=== PATIENT | female | born 1945 | race Two or more races ===

== ENCOUNTER → 2021-02-08 | Outpatient (CLI) | payer OTHER ==
[~2021-02-08] MED LIST: ARICEPT10 MG; COZAAR50 MG; DICLOFENAC SODI50 MG; ECOTRIN81 MG; GLIMEPIRIDE2 MG PO; ZOLOFT50 MG
== END | disposition home or self-care (01) ==
LOC: PPH VACUNA 08-15 08:00
PROVIDERS: ATTEND Emergency Medicine Pediatric Emergency Medicine
DX: Z23 Encounter for immunization (principal)

== ENCOUNTER → 2021-07-27 | Outpatient (CLI) | payer OTHER | END | disposition home or self-care (01) | LOC: MAMO-SONO 13:50 | PROVIDERS: ATTEND Internal Medicine | DX: N60.11 Diffuse cystic mastopathy of right breast (principal); N60.12 Diffuse cystic mastopathy of left breast ==

== ENCOUNTER 2022-02-26 14:06 | Emergency (ER) | payer OTHER ==
[~2022-02-26] VITALS: Ht 165.1 cm; Wt 52.2 kg
== END 2022-02-26 18:57 | disposition home or self-care (01) ==
LOC: ER 14:06
DX: S00.93XA Contusion of unspecified part of head, initial encounter (principal); S70.02XA Contusion of left hip, initial encounter; W18.30XA Fall on same level, unspecified, initial encounter; Y93.9 Activity, unspecified; Y92.018 Other place in single-family (private) house as the place of occurrence of the external cause; Y99.9 Unspecified external cause status; I10 Essential (primary) hypertension; G30.9 Alzheimer's disease, unspecified; F02.80 Dementia in other diseases classified elsewhere, unspecified severity, without behavioral disturbance, psychotic disturbance, mood disturbance, and anxiety

== ENCOUNTER 2022-07-25 15:48 | Emergency (ER) | payer OTHER ==
[~2022-07-25] VITALS: Ht 157.5 cm; Wt 59.0 kg
[2022-07-25] MEDS ORDERED: CLONAZEPAM0.5 MG PO (15:57)
== END 2022-07-25 18:19 | disposition home or self-care (01) ==
LOC: ER 15:48
DX: S09.8XXA Other specified injuries of head, initial encounter (principal); W18.39XA Other fall on same level, initial encounter; Y93.89 Activity, other specified; Y92.018 Other place in single-family (private) house as the place of occurrence of the external cause; I10 Essential (primary) hypertension; G30.8 Other Alzheimer's disease; F02.80 Dementia in other diseases classified elsewhere, unspecified severity, without behavioral disturbance, psychotic disturbance, mood disturbance, and anxiety; E11.9 Type 2 diabetes mellitus without complications; Z79.84 Long term (current) use of oral hypoglycemic drugs; S89.81XA Other specified injuries of right lower leg, initial encounter

== ENCOUNTER 2024-11-13 11:29 | Inpatient (IN) | payer OTHER ==
[~2024-11-13] VITALS: Ht 152.4 cm; Wt 45.4 kg
[~2024-11-13 11:29] MED LIST changes: +CLONAZEPAM0.5 MG PO
[2024-11-13] MEDS ORDERED: FAMOTIDINE/PF 20 MG in 0.9 % SODIUM CHLORIDE 8 ML IV PUSH STA (11:49)
[2024-11-13] MEDS ORDERED: ARICEPT5 MG (11:58)
[2024-11-13] MEDS ORDERED: SERTRALINE20 MG/1 ML (11:58)
[2024-11-13] MEDS ORDERED: COZAAR25 MG (11:59)
[2024-11-13] MEDS ORDERED: GLIMEPIRIDE2 M1 (11:59)
[2024-11-13] MEDS ORDERED: 0.9 % SODIUM CHLORIDE 1,000 ML IV SCH ×2 (12:00→19:45)
[2024-11-13 12:13] LABS: BASO % 0.2 % (0.1-1.2); EOS # 0.08 (0.04-0.54); EOS % 1.6 % (0.7-7.0); LYMPH # 0.85 (1.18-3.74); LYMPH % 16.9 % (19.3-53.1); MEAN PLATELET VOLUME 9.60 fl (9.4-12.4); MONO # 0.51 (0.24-0.82); MONO % 10.2 % (4.7-12.5); NEUT # 3.56 (1.56-6.13); NEUT % 70.9 % (34.0-71.1); RED CELL DISTRIBUTION WIDTH 15.7 % (11.6-14.4)
[2024-11-13 12:35] LABS: ALT/SGPT 27.0 U/L (12-78); AST/SGOT 15.0 U/L (15-37); BILIRUBIN TOTAL 0.39 mg/dL (0.3-1.2); BUN CREA RATIO 41.0 (7.0-25.0); CREATININE SERUM 1.09 mg/dL (0.55-1.02); GFR 48.67; GLOBULINA 2.9 G/DL (2.4-3.5); GLUCOSE FASTING 206.0 mg/dL (65-100); OSMOLALITY SERUM 312.0 MOSM/KG (275-295)
[2024-11-13 12:58] LABS: URINE APPEARANCE Cloudy; URINE BILIRRUBIN Small (NEGATIVE); URINE BLOOD Negative; URINE COLOR Dark Yellow; URINE GLUCOSE Negative (NEGATIVE); URINE KETONE Trace (NEGATIVE); URINE LEUKOCYTE Moderate; URINE NITRATE Negative; URINE PROTEIN Trace (NEGATIVE); URINE UROBILINOGEN 1.0 E.U./dl
[2024-11-13 13:02] LABS: URINE BACTERIA 3476.2 uL (0.0-1933); URINE EPITHELIAL CELLS 40.1 uL (0.0-38.8); URINE RBC 4.3 uL (0.0-20.8); URINE WBC 444.6 uL (0.0-23.2)
[2024-11-13 13:12] LABS: URINE CAST > 21.83 uL (0.0-1.40)
[2024-11-13 13:13] LABS: URINE CRYSTALS FEW /HPF
[2024-11-13] MEDS ORDERED: CEFTRIAXONE SODIUM 1,000 MG VIAL IV ONE (14:30)
[2024-11-13 17:00] VITALS: BP 109/59; O2SAT 100
[2024-11-13 19:00] VITALS: BP 115/58; O2SAT 100
[2024-11-13] MEDS ORDERED: DEXTROSE 50 % IN WATER 0.5 G/ML DISP.SYRIN IV PRN (19:45)
[2024-11-13] MEDS ORDERED: ONDANSETRON HCL 4 MG in 0.9 % SODIUM CHLORIDE 50 ML IV PRN (19:45)
[2024-11-13] MEDS ORDERED: ACETAMINOPHEN 500 MG GEL..CAP PO PRN (19:45)
[2024-11-13] MEDS ORDERED: INSULIN LISPRO 1,000 UNIT/10 ML UNITS SUBCUTANEO PRN (19:45)
[2024-11-13] MEDS ORDERED: PANTOPRAZOLE SODIUM 40 MG/VIAL VIAL IV SCH (19:45)
[2024-11-13] MEDS ORDERED: CEFTRIAXONE SODIUM 2,000 MG in 0.9 % SODIUM CHLORIDE 100 ML IV SCH (19:48)
[2024-11-13 20:00] VITALS: BP 112/61; O2SAT 100
[2024-11-13 21:00] VITALS: BP 112/58; O2SAT 100
[2024-11-13 21:11] LABS: INR 1.15
[2024-11-13 22:00] VITALS: BP 102/62; O2SAT 100
[2024-11-13 23:09] VITALS: BP 106/57; O2SAT 100
[2024-11-14 03:10] VITALS: BP 112/59; O2SAT 100
[2024-11-14 07:08] VITALS: BP 127/70; O2SAT 100
[2024-11-14 12:00] VITALS: BP 119/49; O2SAT 100
[2024-11-14 15:41] VITALS: BP 115/54; O2SAT 100
[2024-11-14 20:00] VITALS: BP 109/56; O2SAT 100
[2024-11-14 21:52] VITALS: BP 110/51; O2SAT 92
[2024-11-15 02:16] VITALS: BP 118/65; O2SAT 98
[2024-11-15 06:41] LABS: BASO % 0.2 % (0.1-1.2); EOS # 0.13 (0.04-0.54); EOS % 2.4 % (0.7-7.0); LYMPH # 0.85 (1.18-3.74); LYMPH % 15.9 % (19.3-53.1); MEAN PLATELET VOLUME 9.80 fl (9.4-12.4); MONO # 0.42 (0.24-0.82); MONO % 7.9 % (4.7-12.5); NEUT # 3.90 (1.56-6.13); NEUT % 73.2 % (34.0-71.1); RED CELL DISTRIBUTION WIDTH 15.4 % (11.6-14.4)
[2024-11-15 07:05] LABS: URINE APPEARANCE Clear; URINE BILIRRUBIN Negative (NEGATIVE); URINE BLOOD Moderate; URINE COLOR Yellow; URINE GLUCOSE Negative (NEGATIVE); URINE KETONE Negative (NEGATIVE); URINE LEUKOCYTE Trace; URINE NITRATE Negative; URINE PROTEIN 30 (NEGATIVE); URINE UROBILINOGEN 0.2 E.U./dl
[2024-11-15 07:10] LABS: URINE BACTERIA 77.9 uL (0.0-1933); URINE CAST 2.78 uL (0.0-1.40); URINE EPITHELIAL CELLS 6.3 uL (0.0-38.8); URINE RBC 435.1 uL (0.0-20.8); URINE WBC 33.8 uL (0.0-23.2)
[2024-11-15 07:17] LABS: ALT/SGPT 23.0 U/L (12-78); AST/SGOT 13.0 U/L (15-37); BILIRUBIN TOTAL 0.27 mg/dL (0.3-1.2); BUN CREA RATIO 40.0 (7.0-25.0); CREATININE SERUM 0.63 mg/dL (0.55-1.02); GFR 91.63; GLOBULINA 2.5 G/DL (2.4-3.5); GLUCOSE FASTING 53.0 mg/dL (65-100)
[2024-11-15 08:05] LABS: OSMOLALITY SERUM 305.0 MOSM/KG (275-295)
[2024-11-15 09:19] VITALS: BP 129/83; O2SAT 98
[2024-11-15 09:55] LABS: CORTISOL 19.84 ug/dl
[2024-11-15] MEDS ORDERED: MAGNESIUM SULFATE IN WATER 50 ML IV STA (09:58)
[2024-11-15] MEDS ORDERED: SODIUM CHLORIDE 0.45 % 1,000 ML IV SCH (10:00)
[2024-11-15] MEDS ORDERED: POTASSIUM CHLORIDE 20MEQ/100ML H2O PB IV NR (10:05)
[2024-11-15 17:48] VITALS: BP 133/72; O2SAT 99
[2024-11-15] MEDS ORDERED: MAGNESIUM SULFATE 50% 1,000 MG/2 ML VIAL IV ONE (20:30)
[2024-11-16 02:47] VITALS: BP 118/71; O2SAT 94
[2024-11-16 09:28] VITALS: BP 137/80
[2024-11-16 09:38] LABS: ALT/SGPT 20.0 U/L (12-78); AST/SGOT 11.0 U/L (15-37); BILIRUBIN TOTAL 0.3 mg/dL (0.3-1.2); BUN CREA RATIO 27.0 (7.0-25.0); CREATININE SERUM 0.55 mg/dL (0.55-1.02); GFR 107.18; GLOBULINA 2.5 G/DL (2.4-3.5); GLUCOSE FASTING 69.0 mg/dL (65-100); OSMOLALITY SERUM 293.0 MOSM/KG (275-295)
[2024-11-16] MEDS ORDERED: SENNOSIDES 1 TAB TABLET PO SCH (17:45)
[2024-11-16 18:05] VITALS: BP 158/78
[2024-11-17 00:33] VITALS: BP 137/86
[2024-11-17 09:21] VITALS: BP 137/87; O2SAT 98
[2024-11-17 18:26] VITALS: BP 138/94
[2024-11-18 00:39] VITALS: BP 128/78
[2024-11-18 10:17] LABS: BASO % 0.1 % (0.1-1.2); EOS # 0.17 (0.04-0.54); EOS % 2.1 % (0.7-7.0); LYMPH # 1.24 (1.18-3.74); LYMPH % 15.6 % (19.3-53.1); MEAN PLATELET VOLUME 10.00 fl (9.4-12.4); MONO # 0.65 (0.24-0.82); MONO % 8.2 % (4.7-12.5); NEUT # 5.82 (1.56-6.13); NEUT % 73.2 % (34.0-71.1); RED CELL DISTRIBUTION WIDTH 15.5 % (11.6-14.4)
[2024-11-18 10:20] VITALS: BP 103/55; O2SAT 98
[2024-11-18 10:26] VITALS: BP 125/74; O2SAT 99
[2024-11-18 11:16] LABS: ALT/SGPT 20.0 U/L (12-78); AST/SGOT 18.0 U/L (15-37); BILIRUBIN TOTAL 0.23 mg/dL (0.3-1.2); BUN CREA RATIO 11.0 (7.0-25.0); CREATININE SERUM 0.62 mg/dL (0.55-1.02); GFR 93.34; GLOBULINA 2.4 G/DL (2.4-3.5); GLUCOSE FASTING 212.0 mg/dL (65-100); OSMOLALITY SERUM 297.0 MOSM/KG (275-295)
[2024-11-18] MEDS ORDERED: LACTULOSE 20 G/30 ML BLIST.PACK PO SCH (13:00)
[2024-11-18] MEDS ORDERED: DOCUSATE SODIUM 100MG CAP PO SCH (17:00)
[2024-11-18 19:18] VITALS: BP 133/89
[2024-11-18 21:28] LABS: FECAL LEUKOCYTES NEGATIVE (NEGATIVE); ob NEGATIVE (NEGATIVE)
[2024-11-19 02:38] VITALS: BP 132/83; O2SAT 93
[2024-11-19 08:43] VITALS: BP 180/90; O2SAT 97
[2024-11-19] MEDS ORDERED: DIATRIZOATE MEGLUMINE, SODIUM 30 ML BOTTLE PO STA (13:50)
[2024-11-19 19:49] VITALS: BP 131/84
[2024-11-20 02:31] VITALS: BP 134/83; O2SAT 93
[2024-11-20 08:36] VITALS: BP 113/83
[2024-11-20] MEDS ORDERED: PEG3350/SOD SULF,BICARB,CL/KCL 4,000 ML GALLON PO NR (11:00)
[2024-11-20 18:03] VITALS: BP 110/74; O2SAT 96
[2024-11-21 03:04] VITALS: BP 141/84; O2SAT 92
[2024-11-21 08:53] VITALS: BP 124/70
[2024-11-21 12:21] LABS: BASO % 0.3 % (0.1-1.2); EOS # 0.15 (0.04-0.54); EOS % 1.6 % (0.7-7.0); LYMPH # 1.42 (1.18-3.74); LYMPH % 15.3 % (19.3-53.1); MEAN PLATELET VOLUME 9.90 fl (9.4-12.4); MONO # 0.83 (0.24-0.82); MONO % 8.9 % (4.7-12.5); NEUT # 6.76 (1.56-6.13); NEUT % 72.9 % (34.0-71.1); RED CELL DISTRIBUTION WIDTH 16.0 % (11.6-14.4)
[2024-11-21 13:15] LABS: ALT/SGPT 14.0 U/L (12-78); AST/SGOT 9.0 U/L (15-37); BILIRUBIN TOTAL 0.29 mg/dL (0.3-1.2); BUN CREA RATIO 16.0 (7.0-25.0); CREATININE SERUM 0.5 mg/dL (0.55-1.02); GFR 119.64; GLOBULINA 2.2 G/DL (2.4-3.5); GLUCOSE FASTING 134.0 mg/dL (65-100); OSMOLALITY SERUM 285.0 MOSM/KG (275-295)
[2024-11-21 16:54] VITALS: BP 118/78; O2SAT 94
[2024-11-22 01:48] VITALS: BP 116/75; O2SAT 95
[2024-11-22 09:25] VITALS: BP 112/72
[2024-11-22] MEDS ORDERED: NA PHOS,M-B/NA PHOS,DI-BA 1 BOTTLE ENEMA RECTAL STA (12:18)
[2024-11-22 16:00] VITALS: BP 127/97
[2024-11-23 01:16] VITALS: BP 130/80; O2SAT 98
[2024-11-23] MEDS ORDERED: NA PHOS,M-B/NA PHOS,DI-BA 1 BOTTLE ENEMA RECTAL NR (09:15)
[2024-11-23 10:12] VITALS: BP 126/79; O2SAT 97
[2024-11-23] MEDS ORDERED: DONEPEZIL HCL 10 MG TABLET PO SCH (17:00)
[2024-11-23 18:44] VITALS: BP 120/75; O2SAT 96
[2024-11-23] MEDS ORDERED: CLONAZEPAM 0.5 MG TABLET PO SCH (21:00)
[2024-11-24 02:06] VITALS: BP 100/70; O2SAT 98
[2024-11-24] MEDS ORDERED: SERTRALINE HCL 100 MG TABLET PO SCH (09:00)
[2024-11-24 10:37] VITALS: BP 109/75; O2SAT 99
[2024-11-24 13:28] LABS: BASO % 0.2 % (0.1-1.2); EOS # 0.03 (0.04-0.54); EOS % 0.2 % (0.7-7.0); LYMPH # 1.16 (1.18-3.74); LYMPH % 9.1 % (19.3-53.1); MEAN PLATELET VOLUME 9.70 fl (9.4-12.4); MONO # 0.61 (0.24-0.82); MONO % 4.8 % (4.7-12.5); NEUT # 10.90 (1.56-6.13); NEUT % 85.2 % (34.0-71.1); RED CELL DISTRIBUTION WIDTH 17.0 % (11.6-14.4)
[2024-11-24 13:50] LABS: BUN CREA RATIO 11.0 (7.0-25.0); CREATININE SERUM 0.53 mg/dL (0.55-1.02); GFR 111.86; GLUCOSE FASTING 177.0 mg/dL (65-100); OSMOLALITY SERUM 296.0 MOSM/KG (275-295)
[2024-11-24] MEDS ORDERED: POTASSIUM CHLORIDE IN WATER 100 ML IV NR (17:00)
[2024-11-24 18:08] VITALS: BP 120/72; O2SAT 96
[2024-11-25 01:52] VITALS: BP 127/72; O2SAT 94
[2024-11-25 10:30] VITALS: BP 120/84; O2SAT 96
[2024-11-25] MEDS ORDERED: POTASSIUM CHLORIDE IN WATER 100 ML IV NR (12:00)
[2024-11-25 19:13] VITALS: BP 129/99
[2024-11-25 19:22] VITALS: BP 129/79
[2024-11-26 03:30] VITALS: BP 110/68; O2SAT 95
[2024-11-26 07:06] LABS: BUN CREA RATIO 13.0 (7.0-25.0); CREATININE SERUM 0.48 mg/dL (0.55-1.02); GFR 125.41; GLUCOSE FASTING 121.0 mg/dL (65-100); OSMOLALITY SERUM 293.0 MOSM/KG (275-295)
[2024-11-26] MEDS ORDERED: POTASSIUM CHLORIDE IN WATER 40 MEQ/100 ML PIGGYBAG IV ONE (08:00)
[2024-11-26] MEDS ORDERED: CEFTRIAXONE SODIUM 2,000 MG VIAL ONE (08:02)
[2024-11-26] MEDS ORDERED: POTASSIUM CHLORIDE 10 MEQ CAPSULE PO NR (09:00)
[2024-11-26 09:17] VITALS: BP 123/72; O2SAT 96
[2024-11-26 17:52] VITALS: BP 123/80
[2024-11-26] MEDS ORDERED: LACTOBACILLUS ACIDOPHILUS 1 CAP CAP PO SCH (20:16)
[2024-11-26] MEDS ORDERED: MAGNESIUM SULFATE IN WATER 4 GM/100 ML PIGGYBACK IV ONE (20:30)
[2024-11-26] MEDS ORDERED: POTASSIUM CHLORIDE/D5-0.45NACL 40 MEQ/1,000 ML PIGGYBAG IV SCH (20:30)
[2024-11-27 03:46] VITALS: BP 121/68; O2SAT 95
[2024-11-27 05:40] LABS: BUN CREA RATIO 16.0 (7.0-25.0); CREATININE SERUM 0.44 mg/dL (0.55-1.02); GFR 138.65; GLUCOSE FASTING 166.0 mg/dL (65-100); OSMOLALITY SERUM 294.0 MOSM/KG (275-295)
[2024-11-27] MEDS ORDERED: CEFTRIAXONE SODIUM 2,000 MG VIAL ONE (08:55)
[2024-11-27] MEDS ORDERED: POTASSIUM BICARBONATE/CIT AC 25 MEQ TABLET.EFF PO NR (09:00)
[2024-11-27] MEDS ORDERED: POTASSIUM CHLORIDE IN WATER 40 MEQ/100 ML PIGGYBAG IV NR (09:00)
[2024-11-27 10:25] VITALS: BP 142/88; O2SAT 94
[2024-11-27] MEDS ORDERED: DIATRIZOATE MEGLUMINE, SODIUM 30 ML BOTTLE PO NR (16:00)
[2024-11-27 16:25] VITALS: BP 157/85; O2SAT 100
[2024-11-27] MEDS ORDERED: SPIRONOLACTONE 25 MG TABLET PO SCH (17:30)
[2024-11-27] MEDS ORDERED: POTASSIUM CHLORIDE/D5-0.45NACL 40 MEQ/1,000 ML PIGGYBAG IV SCH (17:45)
[2024-11-28 03:43] VITALS: BP 118/81
[2024-11-28 06:32] LABS: BASO % 0.5 % (0.1-1.2); EOS # 0.04 (0.04-0.54); EOS % 0.5 % (0.7-7.0); LYMPH # 1.03 (1.18-3.74); LYMPH % 13.2 % (19.3-53.1); MEAN PLATELET VOLUME 10.20 fl (9.4-12.4); MONO # 0.58 (0.24-0.82); MONO % 7.4 % (4.7-12.5); NEUT # 6.07 (1.56-6.13); NEUT % 78.0 % (34.0-71.1); RED CELL DISTRIBUTION WIDTH 17.2 % (11.6-14.4)
[2024-11-28 07:14] LABS: BUN CREA RATIO 12.0 (7.0-25.0); CREATININE SERUM 0.42 mg/dL (0.55-1.02); GFR 146.3; GLUCOSE FASTING 178.0 mg/dL (65-100); OSMOLALITY SERUM 296.0 MOSM/KG (275-295)
[2024-11-28 09:48] VITALS: BP 124/85; O2SAT 94
[2024-11-28 17:38] VITALS: BP 140/80; O2SAT 96
[2024-11-28] MEDS ORDERED: SPIRONOLACTONE 25 MG TABLET PO SCH (19:11)
[2024-11-28] MEDS ORDERED: POTASSIUM CHLORIDE IN WATER 40 MEQ/100 ML PIGGYBAG IV SCH (21:00)
[2024-11-29 00:52] VITALS: BP 122/83; O2SAT 98
[2024-11-29 08:31] VITALS: BP 126/82
[2024-11-29 16:06] LABS: BUN CREA RATIO 21.0 (7.0-25.0); CREATININE SERUM 0.39 mg/dL (0.55-1.02); GFR 159.36; GLUCOSE FASTING 98.0 mg/dL (65-100); OSMOLALITY SERUM 289.0 MOSM/KG (275-295)
[2024-11-29] MEDS ORDERED: POTASSIUM CHLORIDE IN WATER 40 MEQ/100 ML PIGGYBAG IV ONE (22:45)
[2024-11-29] MEDS ORDERED: NOREPINEPHRINE BITARTRATE 1 MG/ML AMPUL IV SCH (23:45)
[2024-11-30] VITALS: BP 85/50; O2SAT 95
[2024-11-30 01:30] VITALS: BP 108/74
[2024-11-30 05:00] VITALS: BP 109/80
[2024-11-30 07:29] LABS: BASO % 0.3 % (0.1-1.2); EOS # 0.09 (0.04-0.54); EOS % 0.9 % (0.7-7.0); LYMPH # 1.34 (1.18-3.74); LYMPH % 12.7 % (19.3-53.1); MEAN PLATELET VOLUME 11.10 fl (9.4-12.4); MONO # 0.61 (0.24-0.82); MONO % 5.8 % (4.7-12.5); NEUT # 8.40 (1.56-6.13); NEUT % 79.7 % (34.0-71.1); RED CELL DISTRIBUTION WIDTH 17.8 % (11.6-14.4)
[2024-11-30 07:59] LABS: ALT/SGPT 10.0 U/L (12-78); AST/SGOT 13.0 U/L (15-37); BILIRUBIN TOTAL 0.43 mg/dL (0.3-1.2); BUN CREA RATIO 18.0 (7.0-25.0); CREATININE SERUM 0.49 mg/dL (0.55-1.02); GFR 122.46; GLOBULINA 2.3 G/DL (2.4-3.5)
[2024-11-30 08:04] LABS: OSMOLALITY SERUM 287.0 MOSM/KG (275-295)
[2024-11-30 08:05] LABS: GLUCOSE FASTING 326.0 mg/dL (65-100)
[2024-11-30 08:11] VITALS: BP 124/83
[2024-11-30 16:35] VITALS: BP 100/77; O2SAT 92
[2024-12-01 02:00] VITALS: BP 92/72; O2SAT 94
[2024-12-01 09:12] VITALS: BP 113/71
[2024-12-01] MEDS ORDERED: LACTULOSE 20 G/30 ML BLIST.PACK PO NR (11:15)
[2024-12-01 16:25] VITALS: BP 101/71; O2SAT 92
[2024-12-02 03:01] VITALS: BP 126/85; O2SAT 93
[2024-12-02 06:07] LABS: BASO % 0.5 % (0.1-1.2); EOS # 0.12 (0.04-0.54); EOS % 1.4 % (0.7-7.0); LYMPH # 1.02 (1.18-3.74); LYMPH % 12.1 % (19.3-53.1); MEAN PLATELET VOLUME 10.90 fl (9.4-12.4); MONO # 0.67 (0.24-0.82); MONO % 8.0 % (4.7-12.5); NEUT # 6.55 (1.56-6.13); NEUT % 77.8 % (34.0-71.1); RED CELL DISTRIBUTION WIDTH 17.4 % (11.6-14.4)
[2024-12-02 07:08] LABS: ALT/SGPT 10.0 U/L (12-78); AST/SGOT 14.0 U/L (15-37); BILIRUBIN TOTAL 0.32 mg/dL (0.3-1.2); BUN CREA RATIO 23.0 (7.0-25.0); CREATININE SERUM 0.44 mg/dL (0.55-1.02); GFR 138.65; GLOBULINA 2.2 G/DL (2.4-3.5); GLUCOSE FASTING 133.0 mg/dL (65-100); OSMOLALITY SERUM 293.0 MOSM/KG (275-295)
[2024-12-02 08:55] VITALS: BP 95/66
[2024-12-02] MEDS ORDERED: POTASSIUM CHLORIDE IN WATER 40 MEQ/100 ML PIGGYBAG IV NR (10:00)
[2024-12-02 16:25] VITALS: BP 124/82
[2024-12-03 02:23] VITALS: BP 111/75; O2SAT 97
[2024-12-03] MEDS ORDERED: NA PHOS,M-B/NA PHOS,DI-BA 1 BOTTLE ENEMA RECTAL STA ×2 (06:57→07:12)
[2024-12-03] MEDS ORDERED: fentaNYL CITRATE 50 MCG/ML AMPUL IV PUSH ONE (09:00)
[2024-12-03] MEDS ORDERED: MIDAZOLAM HCL 2 MG/2 ML VIAL IV ONE (09:00)
[2024-12-03 18:27] VITALS: BP 115/74
[2024-12-04 01:56] VITALS: BP 106/60; O2SAT 96
[2024-12-04 09:06] VITALS: BP 114/74; O2SAT 99
[2024-12-04 17:57] VITALS: BP 127/79
[2024-12-05 01:37] VITALS: BP 133/82; O2SAT 96
[2024-12-05 09:04] VITALS: BP 138/80; O2SAT 98
[2024-12-05 09:59] LABS: BUN CREA RATIO 26.0 (7.0-25.0); CREATININE SERUM 0.39 mg/dL (0.55-1.02); GFR 159.36; GLUCOSE FASTING 119.0 mg/dL (65-100); OSMOLALITY SERUM 296.0 MOSM/KG (275-295)
[2024-12-05] MEDS ORDERED: POTASSIUM CHLORIDE IN WATER 40 MEQ/100 ML PIGGYBAG IV SCH (13:00)
[2024-12-05 18:00] VITALS: BP 124/81; O2SAT 95
[2024-12-06 01:51] VITALS: BP 133/86; O2SAT 97
[2024-12-06 10:43] VITALS: BP 123/86; O2SAT 97
[2024-12-06] MEDS ORDERED: MAGNESIUM SULFATE IN WATER 4 GM/100 ML PIGGYBACK IV NR (11:00)
[2024-12-06] MEDS ORDERED: SPIRONOLACTONE 50 MG TABLET PO NR (12:00)
[2024-12-06] MEDS ORDERED: POTASSIUM CHLORIDE 10 MEQ CAPSULE PO SCH (13:00)
[2024-12-06] MEDS ORDERED: POTASSIUM CHLORIDE IN WATER 40 MEQ/100 ML PIGGYBAG IV SCH (14:00)
[2024-12-06 17:14] VITALS: BP 142/85; O2SAT 97
[2024-12-07 01:28] VITALS: BP 130/80
[2024-12-07 07:43] LABS: BUN CREA RATIO 24.0 (7.0-25.0); CREATININE SERUM 0.42 mg/dL (0.55-1.02); GFR 146.3; GLUCOSE FASTING 139.0 mg/dL (65-100); OSMOLALITY SERUM 290.0 MOSM/KG (275-295)
[2024-12-07] MEDS ORDERED: SPIRONOLACTONE 50 MG TABLET PO SCH (09:00)
[2024-12-07 09:51] VITALS: BP 128/83; O2SAT 94
== END 2024-12-07 16:26 | disposition home or self-care (01) | DRG 872 ==
LOC: ER → SEC-K 19:58 → ICU 19:58 → MEDJ 19:58 → ICU-2 23:52 → ICU 11-14 03:49 → MEDJ 11-14 20:09
PROVIDERS: General Practice; Internal Medicine; Internal Medicine Infectious Disease; Internal Medicine Nephrology; Student in an Organized Health Care Education/Training Program; ADMIT Internal Medicine; ATTEND Internal Medicine
PROC: BW21ZZZ Computerized Tomography (CT Scan) of Abdomen and Pelvis (ICD-10-PCS; principal; 2024-11-13)
PROC: BW21ZZZ Computerized Tomography (CT Scan) of Abdomen and Pelvis (ICD-10-PCS; 2024-11-19)
PROC: BW21ZZZ Computerized Tomography (CT Scan) of Abdomen and Pelvis (ICD-10-PCS; 2024-11-27)
PROC: B246ZZZ Ultrasonography of Right and Left Heart (ICD-10-PCS; 2024-11-29)
PROC: 0DJD8ZZ Inspection of Lower Intestinal Tract, Via Natural or Artificial Opening Endoscopic (ICD-10-PCS; 2024-12-03)
DX: A41.9 Sepsis, unspecified organism (principal); N39.0 Urinary tract infection, site not specified; E87.0 Hyperosmolality and hypernatremia; E86.0 Dehydration; F02.80 Dementia in other diseases classified elsewhere, unspecified severity, without behavioral disturbance, psychotic disturbance, mood disturbance, and anxiety; I10 Essential (primary) hypertension; G30.9 Alzheimer's disease, unspecified; K59.00 Constipation, unspecified